=== PATIENT | male | born 1990 | race Two or more races ===

== ENCOUNTER 2021-09-17 03:09 | Emergency (ER) | payer MEDICAID ==
[~2021-09-17] VITALS: Ht 190.5 cm; Wt 79.4 kg
[2021-09-17 03:57] VITALS: BP 133/95
== END 2021-09-17 05:13 | disposition left against medical advice (07) ==
LOC: ER 03:09
DX: K08.89 Other specified disorders of teeth and supporting structures (principal); Z53.21 Procedure and treatment not carried out due to patient leaving prior to being seen by health care provider